=== PATIENT | male | born 1990 | race Caucasian/White ===

== ENCOUNTER 2017-11-14 09:45 | Outpatient (RCR) | payer OTHER ==
[~2017-11-14 09:45] MED LIST: ASPIRIN 32325 MG/TAB PO; CIPRO 500MG TA500 MG PO; INHALER; MEDROL 4MG DOSPA4 MG PO; NO HOME MEDICATIONS; NORCO 325 MG-51 TAB PO; PREDNISONE20 MG PO; TYLENOL #3 301 UDTAB PO
== END 2018-01-04 | disposition home or self-care (01) ==
LOC: MKS.ESL.PT
DX: S92.024D Nondisplaced fracture of anterior process of right calcaneus, subsequent encounter for fracture with routine healing (principal)

== ENCOUNTER → 2018-09-22 | Outpatient (CLI) | payer OTHER | LOC: COL.RAD 12:23 | DX: M79.621 Pain in right upper arm (principal) ==